=== PATIENT | female | born 1980 | race Caucasian/White ===

== ENCOUNTER → 2024-04-30 11:30 | Outpatient (REF) | payer OTHER, SELFPAY | LOC: WDC 11:30 | PROVIDERS: ATTENDING PHYSICIAN Internal Medicine | DX: Z12.31 Encounter for screening mammogram for malignant neoplasm of breast (principal); R92.8 Other abnormal and inconclusive findings on diagnostic imaging of breast | CPT/HCPCS: 76642; 77063; 77067 ==

== ENCOUNTER → 2024-10-30 13:47 | Outpatient (REF) | payer OTHER, SELFPAY | LOC: WDC 13:47 | PROVIDERS: ATTENDING PHYSICIAN Internal Medicine | DX: R92.8 Other abnormal and inconclusive findings on diagnostic imaging of breast (principal) | CPT/HCPCS: 76642 ==

== ENCOUNTER → 2025-01-01 14:48 | Outpatient (REF) | payer OTHER, SELFPAY | LOC: RAD 14:48 | PROVIDERS: ATTENDING PHYSICIAN Internal Medicine | DX: R10.11 Right upper quadrant pain (principal) | CPT/HCPCS: 76700 ==

== ENCOUNTER → 2025-02-13 07:10 | Outpatient (REF) | payer OTHER, SELFPAY | LOC: RAD 07:10 | PROVIDERS: ATTENDING PHYSICIAN Internal Medicine | DX: R10.11 Right upper quadrant pain (principal) | CPT/HCPCS: 74177; Q9967 ==

== ENCOUNTER → 2025-02-20 10:03 | Outpatient (REF) | payer OTHER, SELFPAY | LOC: RAD 10:03 | PROVIDERS: ATTENDING PHYSICIAN Internal Medicine | DX: R10.11 Right upper quadrant pain (principal) | CPT/HCPCS: 78227; A9537; J2805 ==

== ENCOUNTER → 2025-05-27 14:29 | Outpatient (REF) | payer OTHER, SELFPAY | LOC: WDC 14:29 | PROVIDERS: ATTENDING PHYSICIAN Advanced Practice Midwife; FAMILY PHYSICIAN Internal Medicine | DX: Z12.31 Encounter for screening mammogram for malignant neoplasm of breast (principal); R92.8 Other abnormal and inconclusive findings on diagnostic imaging of breast | CPT/HCPCS: 76642; 77063; 77067 ==